=== PATIENT | female | born 1975 | race Caucasian/White ===

== ENCOUNTER 2016-08-07 14:12 | Emergency (ER) | payer OTHER ==
[~2016-08-07] VITALS: Ht 175.2 cm; Wt 69.9 kg
[~2016-08-07 14:12] MED LIST: FLEXERIL10 MG PO; MOTRIN800 MG PO
== END 2016-08-07 16:14 | disposition home or self-care (01) ==
LOC: ED 14:12
DX: S16.1XXA Strain of muscle, fascia and tendon at neck level, initial encounter (principal); S09.90XA Unspecified injury of head, initial encounter; Z88.0 Allergy status to penicillin; Z91.030 Bee allergy status; W20.8XXA Other cause of strike by thrown, projected or falling object, initial encounter; Y93.89 Activity, other specified; Y92.9 Unspecified place or not applicable; Y99.9 Unspecified external cause status

== ENCOUNTER → 2017-03-16 | Outpatient (CLI) | payer OTHER | END | disposition home or self-care (01) | LOC: LAB 15:54 | DX: M54.9 Dorsalgia, unspecified (principal); R31.9 Hematuria, unspecified ==